=== PATIENT | male | born 1950 | race Caucasian/White ===

== ENCOUNTER 2017-01-30 06:01 | Inpatient (IN) | payer OTHER ==
[2017-01-30 06:17] VITALS: BMI 29.7
[2017-01-30] MEDS ORDERED: ceFAZolin IV 1 gm in Dextrose 2 GM/100 ML BAG IVPB ONE (07:20)
[2017-01-30] MEDS ORDERED: Lidocaine 1% Inj (20ml) ONE (07:20)
[2017-01-30] MEDS ORDERED: Thrombin Topical 5,000 IU Spray Kit ONE (07:20)
[2017-01-30] MEDS ORDERED: Bupivacaine 0.5% Inj(30mL) ONE (07:20)
[2017-01-30] MEDS ORDERED: Absorbable Gelatin Sponge Size 100 ONE (07:20)
[2017-01-30] MEDS ORDERED: Propofol 10 mg/ml Inj (20 ML) ONE (07:26)
[2017-01-30] MEDS ORDERED: Midazolam 2 MG/2 ML VIAL ONE (07:26)
[2017-01-30] MEDS ORDERED: Succinylcholine 200 mg/10 ml Inj IV ONE (07:27)
[2017-01-30] MEDS ORDERED: Lidocaine 4% (Laryng-O-Jet) Kit MM ONE (07:27)
[2017-01-30] MEDS ORDERED: Sodium Chloride 0.9% 10 ML IV ONE (07:27)
[2017-01-30] MEDS ORDERED: Neostigmine Methylsulfate 2 MG/2 ML ML IV ONE (07:27)
[2017-01-30] MEDS ORDERED: Lidocaine 1% 5ml Abboject IV ONE (07:28)
[2017-01-30] MEDS ORDERED: Rocuronium 10 mg/ml (5 ml) ONE ×2 (07:31→11:23)
[2017-01-30] MEDS ORDERED: Bupivacaine HCl 0.25% PF (30 ml) Inj ONE (08:03)
[2017-01-30] MEDS ORDERED: Bupivacaine HCl/Epi 0.5% 1:20000 30 ML SOL IJ ONE (08:06)
--- NOTE | 2017-01-30 08:06 | CP.PCM.HP ---
<Lupillo Crockett - Last Filed: 01/30/17 08:20> History of Present Illness - History of Present Illness History of Present Illness: Patient is a 66 year old male with PMH of DM and HTN seen in [facility] preoperatively for a right total knee replacement. Patient states that he is having some pain in his knee, particularly when walking or trying to bend it. He states that overall he feels well today. He states that he has been NPO since 10pm last night and only took a small sip of water this morning when taking his anti- hypertensive medication. Patient states that he has had multiple surgeries in the past but denies ever having any adverse reaction to the anesthesia during or following these surgeries. He states that overall he feels well this morning. He denies any allergies and denies any further complaints at this time. Review of Systems - Review of Systems Review of Systems: ROS unremarkable outside of HPI Past Patient History - Infectious Disease Hx of Infectious Diseases: None - Past Medical History & Family History Past Medical History?: Yes - Past Social History Smoking Status: Former Smoker - CARDIAC Hx Cardiac Disorders: Yes Hx Hypercholesterolemia: Yes Hx Hypertension: Yes - PULMONARY Hx Respiratory Disorders: No - NEUROLOGICAL Hx Neurological Disorder: No - HEENT Hx HEENT Problems: No - RENAL Hx Chronic Kidney Disease: No - ENDOCRINE/METABOLIC Hx Endocrine Disorders: Yes Hx Diabetes Mellitus Type 2: Yes - HEMATOLOGICAL/ONCOLOGICAL Hx Blood Disorders: No - INTEGUMENTARY Hx Dermatological Problems: No - MUSCULOSKELETAL/RHEUMATOLOGICAL Hx Musculoskeletal Disorders: Yes Hx Back Pain: Yes Hx Falls: Yes Hx Fractures: Yes (RIGHT TIBIAL PLATEAU ) - GASTROINTESTINAL Hx Gastrointestinal Disorders: No - GENITOURINARY/GYNECOLOGICAL Hx Genitourinary Disorders: No - PSYCHIATRIC Hx Psychophysiologic Disorder: No Hx Substance Use: No - SURGICAL HISTORY Hx Surgeries: Yes Hx Appendectomy: Yes Hx Herniorrhaphy: Yes (UMBILICAL) Hx Orthopedic Surgery: Yes Other/Comment: Back Surgery, Left Knee Sx - ANESTHESIA Hx Anesthesia: Yes Hx Anesthesia Reactions: No Hx Malignant Hyperthermia: No Has any member of the family had a problem w/ anesthesia?: No Meds Allergies/Adverse Reactions: Allergies Allergy/AdvReac Type Severity Reaction Status Date / Time No Known Allergies Allergy Verified 09/26/14 12:20 Physical Exam - Constitutional Appears: Well, Non-toxic, No Acute Distress - Head Exam Head Exam: ATRAUMATIC, NORMOCEPHALIC - Eye Exam Eye Exam: EOMI, PERRL Pupil Exam: PERRL - ENT Exam ENT Exam: Mucous Membranes Moist - Neck Exam Neck exam: Positive for: Normal Inspection. Negative for: Tenderness - Respiratory Exam Respiratory Exam: NORMAL BREATHING PATTERN - Cardiovascular Exam Cardiovascular Exam: REGULAR RHYTHM - GI/Abdominal Exam GI & Abdominal Exam: Soft. absent: Distended, Firm, Guarding - Rectal Exam Rectal Exam: Deferred - Extremities Exam Extremities exam: Positive for: normal capillary refill, normal inspection. Negative for: calf tenderness - Neurological Exam Neurological exam: Alert, Oriented x3 - Psychiatric Exam Psychiatric exam: Normal Affect, Normal Mood - Skin Skin Exam: Intact, Normal Color, Warm Results - Vital Signs Recent Vital Signs: Last Vital Signs Temp 97.9 F 01/30/17 07:15 Pulse 81 01/30/17 07:15 Resp 18 01/30/17 07:15 BP 148/87 01/30/17 07:15 Pulse Ox 96 01/30/17 07:15 - Labs Labs: Laboratory Results - last 24 hr 01/30/17 01/30/17 06:25 07:13 POC Glucose (mg/dL) 171 H BBK History Checked Patient has bt Assessment & Plan - Assessment and Plan (Free Text) Assessment: 66 year old male with PMHx HTN and DM2 seen in [facility] preoperatively before having right total knee replacement performed Plan: 1. Right total knee replacement Patient scheduled for surgery today at 9:45am Patient NPO since 10pm last night All at home medications taken as prescribed Xray R knee two views taken today Patient is medically optimized for surgery at this time 2. DM2 Blood glucose 171 Will continue meds post-op 3. HTN BP 148/87 Will continue meds post-op - Date & Time Date: 01/30/17 Time: 08:19 <Marco Antonio Story - Last Filed: 01/30/17 08:33> Present on Admission - Present on Admission Any Indicators Present on Admission: No Results - Vital Signs Recent Vital Signs: Last Vital Signs Temp 97.9 F 01/30/17 07:15 Pulse 81 01/30/17 07:15 Resp 18 01/30/17 07:15 BP 148/87 01/30/17 07:15 Pulse Ox 96 01/30/17 07:15 - Labs Labs: Laboratory Results - last 24 hr 01/30/17 01/30/17 06:25 07:13 POC Glucose (mg/dL) 171 H Blood Type AB POSITIVE Antibody Screen Negative BBK History Checked Patient has bt Assessment & Plan - Assessment and Plan (Free Text) Plan: ATTENDING ATTESTATION Patient was seen and examined by myself as well as the resident. I fully agree with the findings as documented by the resident. Patient is medically at acceptable risk for surgery. Decision To Admit - Pt Status Changed To: Hospital Disposition Of: [facility] Extended Stay Bed - . Bed Request Type: Med/Surg Admitting Physician: Marco Antonio Story
[2017-01-30] MEDS ORDERED: Lactated Ringer's 1,000 ML IV ONE (10:00)
[2017-01-30] MEDS ORDERED: Sodium Chloride 0.9% 1,000 ML IV ONE (10:10)
--- NOTE | 2017-01-30 11:39 | RAD ---
PROCEDURE: Right Knee Radiographs. HISTORY: pt in SDS, for TKR today COMPARISON: None. FINDINGS: BONES: No acute fracture or destructive bony lesion is identified. Bony defect femoral of fixation hardware is identified at the proximal tibia with residual metal fragments seen locally but within bone and lateral tibial knee soft tissue. JOINTS: Twenty narrowing is seen at the patellofemoral and medial femorotibial compartments with osteophytes in all 3 compartments compatible with relatively advanced degenerative joint disease. No subluxation or dislocation. Degenerative changes are most advanced at the patellofemoral joint. Heterotopic calcification of the insertion of the quadriceps tendon is noted as well as the origin of the patellar tendon. JOINT EFFUSION: None apparent. OTHER FINDINGS: None. IMPRESSION: Advanced degenerative joint disease right knee, status post prior fixation hardware removal from the proximal tibia. No acute fracture or dislocation.
[2017-01-30] MEDS ORDERED: Labetalol 5mg/ml (4ml) ONE (11:47)
[2017-01-30] MEDS ORDERED: Sevoflurane - Inhalation Anesthetic Liq (250 ml) ONE (13:14)
[2017-01-30] MEDS ORDERED: Oxycodone/Acetaminophen 5/325 mg Tab PO PRN (14:02)
[2017-01-30] MEDS ORDERED: HYDROmorphone 0.5 mg/0.5 ml ISec IVP PRN ×2 (14:02→14:45)
[2017-01-30] MEDS ORDERED: Sodium Chloride 0.9% 1,000 ML IV SCH (14:15)
--- NOTE | 2017-01-30 14:56 | PCM.ANESB3 ---
Femoral Nerve Block - Femoral Nerve Block Date of Procedure: 01/30/17 Anesthesiologist: Dr. Palmer Pre-Procedure Diagnosis: S/P Right total knee replacement Post-Procedure Diagnosis: S/P Right total knee replacement Procedure Performed: Femoral Nerve Block Right - Procedure Femoral Nerve Block: The procedure was explained to the patient that it is for the post-operative pain management. Consent was obtained after a thorough discussion with the patient regarding the benefits and possible complications of local anesthetic block of the femoral nerve at the inguinal crease area. The patient was brought to the operating room and standard monitors were applied. Time-out was held with the circulating nurse to confirm the correct surgery and the appropriate block. After the surgery while the patient is still under general anesthesia, in supine position with fully extended lower extremities and the right groin exposed. The femoral artery was then carefully palpated. The ultrasound transducer was then applied to this area in the transverse plane and the femoral nerve was visualized lateral to the femoral artery and underneath the fascia iliaca. After thorough identification, the inguinal crease area was prepped with Chloraprep solution. At this point, a #21 gauge Stimuplex 4-inch needle was inserted immediately lateral to the femoral artery pulse at the inguinal crease and advanced perpendicularly. The needle was inserted to the ultrasound transducer in-plane towards the femoral nerve in a [id number] direction. Needle advancement was performed carefully under direct ultrasound visualization. Nerve stimulator was used and twitch of the quadriceps muscle was obtained at current of 0.3MA. After negative aspiration, 5cc of 0.375% Bupivacaine with 1:200,000 epinephrine was injected and this was followed with 20cc of 0.375% Bupivacaine with 1:200, 000 epinephrine. Under ultrasound guidance the local anesthetics were observed spreading below fascia iliaca and around the femoral nerve. The needle was removed intact and sterile dressing was applied. The patient had stable vital signs, was conscious and in no apparent distress. The patient tolerated the femoral nerve block well with stable vital signs and was transported to PACU.
--- NOTE | 2017-01-30 15:03 | PCM.ANESB2 ---
Popliteal Nerve Block - Popliteal Nerve Block Date of Procedure: 01/30/17 Anesthesiologist: Dr. Palmer Pre-Procedure Diagnosis: S/P Right total knee replacement Post-Procedure Diagnosis: S/P right total knee replacement Procedure Performed: Popliteal Nerve Block Right - Procedure Popliteal Nerve Block: This procedure was explained to the patient that it is for post-operative pain management. Consent was obtained after a thorough discussion with the patient regarding the benefits and possible complications of local anesthetic block of the sciatic nerve at the popliteal level. The patient was brought to the operating room and standard monitors are applied. Time-out was held with the circulating nurse to confirm the correct surgery and the appropriate block. After the surgery while still under general anesthesia, patient's operative leg was gently raised and supported and the groove in between the biceps femoris and vastus lateralis muscles was carefully palpated. The skin approximately 5cm below the gluteal crease was then marked. The ultrasound transducer was then applied to the posterior thigh in the transverse plane and the sciatic nerve and in between the bicep femoris and semimembranosus/semitendinosus muscles. After identification, the lateral portion of the thigh was prepped with Chloraprep solution. At this point, a # 21 gauge Stimuplex insulated 4 inch needle was inserted into pre-marked area and advanced in a perpendicular direction. The needle was inserted above the ultrasound transducer in-plane towards the sciatic nerve in a [id number] direction. Needle advancement was performed carefully under direct ultrasound visualization. Nerve stimulator was used and dorsiflexion of the right foot was elicited at a current of 0.3MA. After repeated negative aspiration, 5cc of 0.375% Bupivacaine with 1:200,000 epinephrine was injected and this was flowed with 15cc of 0.375% Bupivacaine with 1:200,000 epinephrine. Under ultrasound guidance the local anesthetics were observed surrounding sciatic nerve . The needle was removed intact and sterile dressing was applied. The patient tolerated the popliteal nerve block well with stable vital signs and was transported to PACU.
--- NOTE | 2017-01-30 15:32 | RAD ---
PROCEDURE: Right Knee Radiographs. HISTORY: post op right tkr COMPARISON: 01/31/2020 [id number] FINDINGS: BONES: No osseous fracture. JOINTS: Status post right TKR. Grossly normal alignment achieved. JOINT EFFUSION: None. OTHER FINDINGS: Postoperative changes in anterior soft tissues. Surgical drain present. IMPRESSION: Status post right TKR.
[2017-01-30] MEDS: ceFAZolin IV 2 gm in Dextrose 2 GM/50 ML BAG IVPB SCH (17:00)
[2017-01-30] MEDS: Lactated Ringer's 1,000 ML IV SCH (19:34)
[2017-01-30] MEDS: Pravastatin Sodium 20 MG TAB PO SCH (21:37)
[2017-01-30] MEDS ORDERED: Patient's Own Med (Simvastatin [Simvastatin] 10 MG) PO SCH (22:00)
[2017-01-31] MEDS: ceFAZolin IV 2 gm in Dextrose 2 GM/50 ML BAG IVPB SCH (00:43)
[2017-01-31] MEDS: Lactated Ringer's 1,000 ML IV SCH ×3 (04:23→21:00)
--- NOTE | 2017-01-31 08:14 | PCM.SURG1 ---
Surgeon's Initial Post Op Note - Surgeon's Notes Surgeon: Ana Cristina Protection Agent: GARCÍA Orellana, 2nd assist/Linwood Lee Type of Anesthesia: General Endo, Spinal Anesthesia Administered By: DR Palmer Pre-Operative Diagnosis: Severe postrtraumatic O/A R Knee Operative Findings: as above. posterior capsular contracture. lateral patella contacture. severe tricompartmental synovitis Post-Operative Diagnosis: as above Operation Performed: R TKR. poosterior capsular release. lateral patella release'. anterior and posterior synovectomy. computer navigation Specimen/Specimens Removed: synovium/cartialge/bone Estimated Blood Loss: EBL {In ML}: 35 Blood Products Given: N/A Drains Used: No Drains Post-Op Condition: Good Date of Surgery/Procedure: 01/31/17 Time of Surgery/Procedure: 11:40 (time in room 10:45)
[2017-01-31 08:39] LABS: HEMATOCRIT 33.9 % (35.0-51.0); MEAN CELL VOLUME 90.2 fl (80.0-94.0); MEAN CORPUSCULAR HEMOGLOBIN 29.8 pg (27.0-31.0); RED CELL DISTRIBUTION WIDTH 13.6 % (11.5-14.5); WHITE BLOOD COUNT 9.4 K/uL (4.8-10.8)
[2017-01-31 08:56] LABS: POTASSIUM 4.1 MMOL/L (3.6-5.0)
[2017-01-31 08:59] LABS: BLOOD UREA NITROGEN 15 mg/dl (9-20); CARBON DIOXIDE 25 mmol/L (22-30); CHLORIDE 100 mmol/L (98-107); GFR AFRICAN-AMERICAN > 60; GLUCOSE,RANDOM 357 mg/dL (75-110); SODIUM 135 mmol/l (132-148)
[2017-01-31] MEDS ORDERED: ENALAPRIL 40 MG PO SCH (09:00)
--- NOTE | 2017-01-31 09:06 | CP.PCM.PN ---
Subjective - Date & Time of Evaluation Date of Evaluation: 01/31/17 Time of Evaluation: 09:02 - Subjective Subjective: 66 year old male seen bedside 1 day s/p right TKR. Patient states that he is not in any pain at this time and has been using his DITCH CLEANER pump as needed. Patient denies shortness of breath, chest pain, posterior calf pain, abdominal pain. He states that he has not had a BM since surgery but states that he has no symptoms of constipation and says that he had an enema prior to surgery. States that his appetite has been good. Patient denies any further complaints at this time. Objective - Vital Signs/Intake and Output Vital Signs (last 24 hours): Temp Pulse Resp BP Pulse Ox 100.4 F H 110 H 19 158/94 H 99 01/31/17 07:53 01/31/17 07:53 01/31/17 07:53 01/31/17 08:54 01/31/17 07:53 - Medications Medications: Current Medications Amlodipine Besylate (Norvasc) 10 mg PO DAILY [facility] Last Admin: 01/31/17 08:54 Dose: 10 mg Aspirin (Ecotrin) 81 mg PO Q12H [facility] Last Admin: 01/31/17 08:54 Dose: 81 mg Docusate Sodium (Colace) 100 mg PO BID [facility] Last Admin: 01/31/17 08:54 Dose: 100 mg Enalapril Maleate (Vasotec) 40 mg PO DAILY [facility] Last Admin: 01/31/17 08:55 Dose: 40 mg Gabapentin (Neurontin) 600 mg PO BID [facility] Last Admin: 01/31/17 08:54 Dose: 600 mg Glyburide (Micronase) 5 mg PO BID [facility] Last Admin: 01/31/17 08:55 Dose: 5 mg Hydromorphone HCl (Dilaudid) 0.5 mg IVP Q4 PRN PRN Reason: Pain, severe (8-10) Hydromorphone HCl (Dilaudid 0.2 Mg/Ml Media Manager) 6 mg IV PRN PRN; Protocol PRN Reason: Pain, moderate (4-7) Last Admin: 01/30/17 16:43 Dose: 0 mg Sodium Chloride (Sodium Chloride 0.9%) 1,000 mls @ 100 mls/hr IV .Q10H [facility] Stop: 01/31/17 14:05 Lactated Ringer's (Lactated Ringer's) 1,000 mls @ 100 mls/hr IV .Q10H [facility] Last Admin: 01/31/17 04:33 Dose: Not Given Metformin HCl (Glucophage) 500 mg PO BID [facility] Last Admin: 01/31/17 08:55 Dose: 500 mg Oxycodone/Acetaminophen (Percocet 5/325 Mg Tab) 2 tab PO Q4 PRN PRN Reason: Pain, moderate (4-7) Stop: 02/02/17 14:03 Pravastatin Sodium (Pravachol) 20 mg PO HS [facility] Last Admin: 01/30/17 21:37 Dose: 20 mg Sitagliptin Phosphate (Januvia) 100 mg PO DAILY [facility] - Labs Labs: 01/31/17 08:00 01/31/17 08:00 - Constitutional Appears: Well, Non-toxic, No Acute Distress - Head Exam Head Exam: ATRAUMATIC, NORMOCEPHALIC - Eye Exam Eye Exam: EOMI, PERRL Pupil Exam: PERRL - ENT Exam ENT Exam: Mucous Membranes Moist - Neck Exam Neck Exam: Normal Inspection. absent: Tenderness - Respiratory Exam Respiratory Exam: Clear to Ausculation Bilateral, NORMAL BREATHING PATTERN - Cardiovascular Exam Cardiovascular Exam: REGULAR RHYTHM - GI/Abdominal Exam GI & Abdominal Exam: Soft. absent: Firm, Guarding, Rigid - Rectal Exam Rectal Exam: Deferred - Extremities Exam Extremities Exam: Normal Capillary Refill, Normal Inspection. absent: Full ROM - Neurological Exam Neurological Exam: Alert, Awake, Oriented x3 - Psychiatric Exam Psychiatric exam: Normal Affect, Normal Mood - Skin Skin Exam: Dry, Intact, Warm Assessment and Plan - Assessment and Plan (Free Text) Assessment: 66 year old male seen at bedside 1 day s/p right TKR Plan: 66 year old male with PMHx of HTN, DM2 seen 1 day s/p right total knee replacment by Dr. De La Paz on 01/31/17 1. Right TKR POD #1 - TKR with Dr. De La Paz on 01/30/17 - No Leukocytosis - Continue Colace - DC DITCH CLEANER pump, continue Percocet - Continue incentive spirometery - Leave MILADIS drain in place, 80 cc fluid noted - CPM - PT/OT - To TCU tomorrow 02/01/17 2. DM2 - Hyperglycemia (random glucose 357) - Continue Glyburide - Continue Metformin - Continue Januvia - Continue Consistent carbohydrate diet - Continue Accucheck 3. HTN - BP 158/94 - Continue Norvasc - Continue Vasotec 4. Anemia - Hgb: 11.2, Hct: 33.9 5. Fever - Etiology most likely postoperative - Monitor - Continue Incentive Spirometer - Continue Tylenol - Repeat CBC, monitor WBC - Continue IV fluids 6. Hypocalemia - Calcium 8.0 7. DVT prophylaxis - Continue aspirin 81 mg - SCD 8. 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
--- NOTE | 2017-01-31 10:25 | CP.PCM.PN ---
Subjective - Date & Time of Evaluation Date of Evaluation: 01/31/17 Time of Evaluation: 07:30 - Subjective Subjective: Patient states that he has no pain in knee, still unable to move toes from block. Denies CP/SOB/dizziness. Objective - Vital Signs/Intake and Output Vital Signs (last 24 hours): Temp Pulse Resp BP Pulse Ox 100.4 F H 110 H 19 158/94 H 99 01/31/17 07:53 01/31/17 07:53 01/31/17 07:53 01/31/17 08:54 01/31/17 07:53 - Medications Medications: Current Medications Amlodipine Besylate (Norvasc) 10 mg PO DAILY [facility] Last Admin: 01/31/17 08:54 Dose: 10 mg Aspirin (Ecotrin) 81 mg PO Q12H [facility] Last Admin: 01/31/17 08:54 Dose: 81 mg Docusate Sodium (Colace) 100 mg PO BID [facility] Last Admin: 01/31/17 08:54 Dose: 100 mg Enalapril Maleate (Vasotec) 40 mg PO DAILY [facility] Last Admin: 01/31/17 08:55 Dose: 40 mg Gabapentin (Neurontin) 600 mg PO BID [facility] Last Admin: 01/31/17 08:54 Dose: 600 mg Glyburide (Micronase) 5 mg PO BID [facility] Last Admin: 01/31/17 08:55 Dose: 5 mg Hydromorphone HCl (Dilaudid) 0.5 mg IVP Q4 PRN PRN Reason: Pain, severe (8-10) Sodium Chloride (Sodium Chloride 0.9%) 1,000 mls @ 100 mls/hr IV .Q10H [facility] Stop: 01/31/17 14:05 Lactated Ringer's (Lactated Ringer's) 1,000 mls @ 100 mls/hr IV .Q10H [facility] Last Admin: 01/31/17 04:33 Dose: Not Given Metformin HCl (Glucophage) 500 mg PO BID [facility] Last Admin: 01/31/17 08:55 Dose: 500 mg Oxycodone/Acetaminophen (Percocet 5/325 Mg Tab) 2 tab PO Q4 PRN PRN Reason: Pain, moderate (4-7) Stop: 02/02/17 14:03 Pravastatin Sodium (Pravachol) 20 mg PO HS [facility] Last Admin: 01/30/17 21:37 Dose: 20 mg Sitagliptin Phosphate (Januvia) 100 mg PO DAILY [facility] Last Admin: 01/31/17 10:18 Dose: 100 mg - Labs Labs: 01/31/17 08:00 01/31/17 08:00 - Extremities Exam Additional comments: RLE: no ROM or sensation due to block. drain pulled. Calves soft NT neg homans + DP/PT pulses calves soft NT neg homans Assessment and Plan (1) Primary osteoarthritis of right knee Assessment & Plan: POD#1 s/p right TKR -VTE proph aspirin -PT/OT -d/c planning -labs reviewed -d/w Dr. torrez, agrees with above Status: Acute
[2017-01-31] MEDS ORDERED: Insulin Regular 100 units/ml SC ONE (12:34)
[2017-01-31] MEDS: Insulin Regular 100 units/ml SC SCH ×2 (16:45→21:50)
[2017-01-31] MEDS: Pravastatin Sodium 20 MG TAB PO SCH (21:21)
[2017-02-01] MEDS: Lactated Ringer's 1,000 ML IV SCH (06:15)
[2017-02-01 06:33] LABS: HEMATOCRIT 31.9 % (35.0-51.0); MEAN CORPUSCULAR HEMOGLOBIN 29.2 pg (27.0-31.0); MEAN CORPUSCULAR HGB CONC 32.5 g/dL (33.0-37.0); RED CELL DISTRIBUTION WIDTH 13.5 % (11.5-14.5); WHITE BLOOD COUNT 11.2 K/uL (4.8-10.8)
[2017-02-01 06:53] LABS: BLOOD UREA NITROGEN 12 mg/dl (9-20); CALCIUM 8.4 mg/dL (8.4-10.2); CARBON DIOXIDE 27 mmol/L (22-30); CHLORIDE 101 mmol/L (98-107); GFR AFRICAN-AMERICAN > 60; GLUCOSE,RANDOM 197 mg/dL (75-110); SODIUM 137 mmol/l (132-148)
[2017-02-01] MEDS: Insulin Regular 100 units/ml SC SCH ×2 (08:41→12:02)
[2017-02-01] MEDS ORDERED: GLYBURIDE PO SCH (09:00)
[2017-02-01] MEDS ORDERED: JANUVIA 100 MG PO SCH (09:00)
[2017-02-01] MEDS ORDERED: METFORMIN HCL PO SCH (09:00)
--- NOTE | 2017-02-01 09:14 | CP.PCM.DIS ---
Provider - Provider Date of Admission: 01/30/17 14:02 Attending physician: Herberth Story DO Primary care physician: Ulises De La Paz III, MD Consults: Dr. Ana Cristina MD Time Spent in preparation of Discharge (in minutes): 25 Hospital Course - Lab Results Lab Results: Most Recent Lab Values WBC 11.2 K/uL (4.8-10.8) H 02/01/17 06:26 RBC 3.55 Mil/uL (4.40-5.90) L 02/01/17 06:26 Hgb 10.4 g/dL (12.0-18.0) L 02/01/17 06:26 Hct 31.9 % (35.0-51.0) L 02/01/17 06:26 MCV 90.0 fl (80.0-94.0) 02/01/17 06:26 MCH 29.2 pg (27.0-31.0) 02/01/17 06:26 MCHC 32.5 g/dL (33.0-37.0) L 02/01/17 06:26 RDW 13.5 % (11.5-14.5) 02/01/17 06:26 Plt Count 132 K/uL (130-400) 02/01/17 06:26 Sodium 137 mmol/l (132-148) 02/01/17 06:26 Potassium 4.0 MMOL/L (3.6-5.0) 02/01/17 06:26 Chloride 101 mmol/L (98-107) 02/01/17 06:26 Carbon Dioxide 27 mmol/L (22-30) 02/01/17 06:26 Anion Gap 13 (10-20) 02/01/17 06:26 BUN 12 mg/dl (9-20) 02/01/17 06:26 Creatinine 1.0 mg/dl (0.8-1.5) 02/01/17 06:26 Est GFR ( Amer) > 60 02/01/17 06:26 Est GFR (Non-Af Amer) > 60 02/01/17 06:26 POC Glucose (mg/dL) 199 mg/dL (65-110) H 02/01/17 06:06 Random Glucose 197 mg/dL (75-110) H 02/01/17 06:26 Calcium 8.4 mg/dL (8.4-10.2) 02/01/17 06:26 25-OH Vitamin D Total 46.9 NG/ML (30.0-100.0) 01/31/17 08:00 Blood Type AB POSITIVE 01/30/17 06:25 Antibody Screen Negative 01/30/17 06:25 BBK History Checked Patient has bt 01/30/17 06:25 - Hospital Course Hospital Course: Patient is a 66 year old male with PMH of DM and HTN who presented to [facility] for a right total knee replacement with Dr. De La Paz. The patient underwent the procedure without complications. He is currently POD#2. He states that he feels well this morning. He relates that his pain is under control with medications. Patient denies chest pain, shortness of breath, fevers, chills, nausea, vomiting , diarrhea, headache. Rest of ROS as below. All of the patient's and/or family' s questions were answered at the bedside. The patient is being discharged to TCU today for further PT/OT and postoperative care. 66 year old male with PMHx of HTN, DM2 seen 1 day s/p right total knee replacment by Dr. De La Paz on 01/31/17 1. Right TKR POD #2 - Discharge to transitional care unit now for PT/OT - Dr. De La Paz on consultation - No Leukocytosis - Continue Colace - OPERATOR LIGHTS pump discontinued, continue Percocet - Continue incentive spirometery - CPM - PT/OT 2. DM2 - Hyperglycemia - Continue Glyburide - Continue Metformin - Continue Januvia - Continue Consistent carbohydrate diet - Continue Accucheck 3. HTN - BP 158/94->159/81 today - Continue Norvasc - Continue Vasotec 4. Anemia - Hgb: 11.2, Hct: 33.9 5. Fever- resolved - Etiology most likely postoperative - Monitor - Continue Incentive Spirometer - Continue Tylenol - Repeat CBC, monitor WBC - Continue IV fluids 6. Hypocalemia resolved - Calcium 8.0->8.4 7. DVT prophylaxis - Continue aspirin 81 mg po q 12 hours - SCD 8. 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 Head- NCAT, PERRL Eye- PERRL, normal accommodation ENT- normal exam, MMM. Neck- normal inspection, supple, no JVD Respiratory- CTAB, no wheezes rales rhonchi Cardiovascular- RRR, +S1, +S2 no MRG GI/Abdominal- normal bowel sounds, soft, no mass, no hsm Skin- warm, dry Extremities Exam- Right knee in immobilizer; normal capillary refill, normal inspection Neurological Exam- alert, stable gait Psych- normal mood, normal affect Discharge Plan - Follow Up Plan Condition: GOOD Disposition: TRANSF TO SNF Referrals: Ulises De La Paz III, MD [Primary Care Provider] -
--- NOTE | 2017-02-01 11:27 | CP.PCM.PN ---
Subjective - Date & Time of Evaluation Date of Evaluation: 02/01/17 Time of Evaluation: 11:20 - Subjective Subjective: S- pt comfortablle/MINIMAL post op discomfort Objective - Vital Signs/Intake and Output Vital Signs (last 24 hours): Temp Pulse Resp BP Pulse Ox 99.8 F H 114 H 19 159/81 H 99 02/01/17 08:13 02/01/17 08:13 02/01/17 08:13 02/01/17 08:38 02/01/17 08:13 - Medications Medications: Current Medications Acetaminophen (Tylenol 325mg Tab) 650 mg PO Q6 PRN PRN Reason: Fever >100.4 F Last Admin: 01/31/17 23:56 Dose: 650 mg Amlodipine Besylate (Norvasc) 10 mg PO DAILY COUNTS INCLUDE 234 BEDS AT THE [facility] Last Admin: 02/01/17 08:38 Dose: 10 mg Aspirin (Ecotrin) 81 mg PO Q12H COUNTS INCLUDE 234 BEDS AT THE [facility] Last Admin: 02/01/17 08:38 Dose: 81 mg Docusate Sodium (Colace) 100 mg PO BID COUNTS INCLUDE 234 BEDS AT THE [facility] Last Admin: 02/01/17 08:38 Dose: 100 mg Enalapril Maleate (Vasotec) 40 mg PO DAILY COUNTS INCLUDE 234 BEDS AT THE [facility] Last Admin: 02/01/17 08:41 Dose: 40 mg Gabapentin (Neurontin) 600 mg PO BID COUNTS INCLUDE 234 BEDS AT THE [facility] Last Admin: 02/01/17 08:39 Dose: 600 mg Glyburide (Micronase) 5 mg PO BID COUNTS INCLUDE 234 BEDS AT THE [facility] Last Admin: 02/01/17 08:41 Dose: 5 mg Hydromorphone HCl (Dilaudid) 0.5 mg IVP Q4 PRN PRN Reason: Pain, severe (8-10) Lactated Ringer's (Lactated Ringer's) 1,000 mls @ 100 mls/hr IV .Q10H COUNTS INCLUDE 234 BEDS AT THE [facility] Last Admin: 02/01/17 06:15 Dose: Not Given Insulin Human Regular (Humulin R) 0 units SC ACHS COUNTS INCLUDE 234 BEDS AT THE [facility] PRN Reason: Protocol Last Admin: 02/01/17 08:41 Dose: 1 units Metformin HCl (Glucophage) 500 mg PO BID COUNTS INCLUDE 234 BEDS AT THE [facility] Last Admin: 02/01/17 08:39 Dose: 500 mg Oxycodone/Acetaminophen (Percocet 5/325 Mg Tab) 2 tab PO Q4 PRN PRN Reason: Pain, moderate (4-7) Stop: 02/02/17 14:03 Pravastatin Sodium (Pravachol) 20 mg PO HS COUNTS INCLUDE 234 BEDS AT THE [facility] Last Admin: 01/31/17 21:21 Dose: 20 mg Sitagliptin Phosphate (Januvia) 100 mg PO DAILY COUNTS INCLUDE 234 BEDS AT THE [facility] Last Admin: 02/01/17 08:40 Dose: 100 mg - Labs Labs: 02/01/17 06:26 02/01/17 06:26 - Skin Additional comments: Objective systemic- wnl no evidence for thromboembolic disease Musculoskekltal stance/gait- defrred R knee dressing dry and intacty N/V ibtact no gross/progressive deficit Assessment and Plan - Assessment and Plan (Free Text) Assessment: A- s.p R TKR excellent position P- orthopedially stable for TCU transfer
[2017-02-01 12:15] VITALS: BP 158/96; RESP 20; TEMP 102.3; O2SAT 96
[2017-02-01 12:54] VITALS: PULSE 120
--- NOTE | 2017-02-03 19:13 | OP ---
PROCEDURE DATE: 01/30/2017 LOCATION: [facility]. PREOPERATIVE DIAGNOSIS: Severe tricompartmental osteoarthritis of the right knee. POSTOPERATIVE DIAGNOSES: 1. 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 2. Posterior capsular contracture. 3. Lateral patellar contracture. 4. Severe tricompartmental synovitis. OPERATIVE FINDINGS: As above. OPERATION PERFORMED: 1. Right total knee replacement arthroplasty. 2. Posterior capsular release. 3. Lateral patellar retinacular release. 4. Anterior and posterior synovectomy. 5. Computer navigation. SURGEON: Ulises De La Paz MD DIABETES EDUCATOR: Analy Porter, certified registered nursing. SECOND COMMISSARY PRODUCTION SUPERVISOR: Dr. Linwood Lee. SPECIMENS REMOVED: Synovium, cartilage, and bone. BLOOD LOSS: Approximately 35 mL. BLOOD PRODUCTS: None. DRAINS: One Hemovac drain. POSTOPERATIVE CONDITION: Good. DATE AND LOCATION OF SURGERY: 01/30/2017, right knee is the correct knee. TIME IN THE ROOM: 10:45 a.m. INCISION TIME: 11:40 a.m. OPERATIVE INDICATION: After having obtained informed consent in the above fashion, after having identified side, site, and procedure and critical pause/time-out, after the satisfactory induction of the anesthetic, the patient identified as Jorge Christina in the supine position with all bony prominences well padded, the right lower extremity was prepped and free draped in the usual fashion for lower extremity surgery. The patient presents, well known to my practice, presents with severe pain, restricted range of motion with restriction of femoral flexion and extension. The patient is status post successful open reduction and internal fixation of the tibial plateau fracture. Pros, cons, risks, and benefits of surgery and approach were discussed. The possibility of mechanical failure, infection, thromboembolic disease, secondary or tertiary surgery were discussed. The patient and the family wished the surgery to be accomplished. He can no longer stand the discomfort. OPERATIVE PROCEDURE: After having obtained informed consent in the above fashion, after having identified the side, site, and procedure and a critical pause/time-out, after the satisfactory induction of the anesthetic, the patient identified as Jorge Christina in the supine position with all bony prominences well padded, the right lower extremity was prepped and free draped in the usual fashion for lower extremity surgery. The tourniquet had been applied, but was not yet inflated. After exsanguinating the limb using a 6-inch Esmarch bandage, the tourniquet which had been applied was inflated to 350 mmHg on the right knee. A 6-inch straight midline approach was made to the knee. The skin incision was carried down through the skin and subcutaneous tissue, medial arthrotomy was accomplished. There was found to be extensive contracture. The pes anserinus was released and the dissection was carried around posteromedially to the direct head of the semimembranosus tendon that was released as well. The tibia was dislocated anteriorly. Anterior and posterior cruciate ligaments were excised. Medial and lateral meniscectomies were accomplished. There was found to be an exuberant amount of synovial tissue and an anterior and posterior synovectomy was accomplished using the electrocautery and the Aquamantys. This having been accomplished, computer navigation commences with the anterior strut of the KneeAlign system placed on the anterior aspect of the tibia and affixed with guide pins. The accelerometer and sensor were placed and offset was set to the posterior aspect of the anterior cruciate ligament. This having been accomplished, the knee center is identified and offset having been identified. The lateral malleolus was registered, the medial malleolus was registered and the cut was set to 3.5 degrees posterior slope, 0 degrees varus-valgus. The cut was set to 10 mm below the more prominent side. The tibial osteotomy was accomplished. The tibia was sized to the appropriate #4 tibial component. Guides to rotation are the mid malleolar axis, the lateral aspect, the medial aspect of the tibial tuberosity, and the lateral aspect of the tibial condyle. This having been accomplished, the proximal tibia was prepared and attention was turned to the femur after preparing and punching the proximal tibia. It should be noted that computer navigation was employed. After registration of the offset of the femur, the notch osteophytes and border osteophytes were debrided. The intercondylar guide notch pin was placed, the distal cutting guide was placed. The distal cutting guide was fixed with pins. The accelerometer was placed as well as the sensor. Varus-valgus set to 0 degrees, a 0.5 degrees posterior slope with 0.5 degrees of flexion. This having been accomplished, the hip center was identified and registered. The offset was registered as well and the distal cutting guide was placed to 9 mm. The distal cut was accomplished with precision offered by an [facility] retractor keeping the blade relatively fixed to the bony cut surface. It should be noted at this point in time, the anterior and posterior synovectomies were accomplished to identify the anterior aspect of the femur and to eliminate inflammatory tissue. The #4 femoral component was employed as well, 4-in-1 block was placed across the epicondylar axis. The 4-in-1 block placed, anterior and posterior osteotomies were accomplished as well as chamfer cuts. The lamina human geography instructor was placed and the posterior capsule was elevated. A lateral patellar retinacular release was accomplished as well since there were marked contractures of the lateral retinaculum and the posterior capsule. At this point in time, a femoral trial was placed. Lugs were affixed in the appropriate attitude, reaming was accomplished. At this point in time, the patellofemoral joint was identified. The sled was placed and the patellofemoral joint was reamed. Attention was now turned to the patella. Patella girth was found to be approximately 31 mm. Freehand patella osteotomy was accomplished. The patella was templated and reamed to a #2 Medacta patellar component. It should be noted that the lateral patellar retinaculum was contracted and was released. The Aquamantys was used to control the bleeding from the synovium and the lateral retinaculum and the posterior capsule. Great care was taken to spare the superior lateral genicular vessels. The patella was placed. Flexion/extension balance was found to be excellent. Patellar balance was found to be excellent. Trialing having been accomplished, the femur, tibia, and patella were prepared with the Pulsavac and the appropriate size components were cemented. The wound was thoroughly irrigated. Tourniquet was deflated. Hemostasis was controlled. Blood loss was approximately 35 mL. Closures in layers with #1 Vicryl, 0 Vicryl, 2-0 Vicryl, and sudhir for skin over an 8-inch suction Hemovac drain. Flo Rodriguez compression dressing was applied. It should be noted that the nursing glass ribbon machine operator assistant was essential to the completion of the operative goal, and the patient was transferred from the operating table to the stretcher having tolerated the procedure well. Ulises De La Paz MD
== END 2017-02-01 14:22 | DRG 470 ==
LOC: H.OPSURG 06:01 → H.MEDSURG1 14:02
PROVIDERS: ADMIT Internal Medicine; ATTEND Internal Medicine
PROC: 0SRC0J9 Replacement of Right Knee Joint with Synthetic Substitute, Cemented, Open Approach (ICD-10-PCS; principal; 2017-01-30 09:45)
PROC: 3E0T3BZ Introduction of Anesthetic Agent into Peripheral Nerves and Plexi, Percutaneous Approach (ICD-10-PCS; 2017-01-30 09:45)
PROC: 0SBC0ZZ Excision of Right Knee Joint, Open Approach (ICD-10-PCS; 2017-01-30 09:45)
DX: M17.11 Unilateral primary osteoarthritis, right knee (principal); E11.41 Type 2 diabetes mellitus with diabetic mononeuropathy; D64.9 Anemia, unspecified; M54.9 Dorsalgia, unspecified; Z79.82 Long term (current) use of aspirin; Z87.891 Personal history of nicotine dependence; Z90.49 Acquired absence of other specified parts of digestive tract; R50.82 Postprocedural fever; E11.65 Type 2 diabetes mellitus with hyperglycemia; E78.00 Pure hypercholesterolemia, unspecified; I10 Essential (primary) hypertension; R00.0 Tachycardia, unspecified; M17.31 Unilateral post-traumatic osteoarthritis, right knee; M65.9 Synovitis and tenosynovitis, unspecified

== ENCOUNTER 2017-01-31 14:40 | Inpatient (IN) | payer OTHER ==
[2017-02-01 13:55] VITALS: BMI 30.1
[2017-02-01 14:32] VITALS: RESP 20
[2017-02-01] MEDS: Insulin Regular 100 units/ml SC SCH (17:27)
[2017-02-01] MEDS: Oxycodone/Acetaminophen 5/325 mg Tab PO PRN (21:26)
[2017-02-01] MEDS: Pravastatin Sodium 20 MG TAB PO SCH (21:30)
[2017-02-02] MEDS: Insulin Regular 100 units/ml SC SCH ×4 (00:01→16:16)
[2017-02-02 08:21] LABS: MEAN CELL VOLUME 89.4 fl (80.0-94.0); MEAN CORPUSCULAR HEMOGLOBIN 30.5 pg (27.0-31.0); MEAN CORPUSCULAR HGB CONC 34.1 g/dL (33.0-37.0); RED CELL DISTRIBUTION WIDTH 13.3 % (11.5-14.5); WHITE BLOOD COUNT 9.2 K/uL (4.8-10.8)
[2017-02-02 08:34] LABS: BLOOD UREA NITROGEN 14 mg/dl (9-20); CALCIUM 8.8 mg/dL (8.4-10.2); CARBON DIOXIDE 26 mmol/L (22-30); CHLORIDE 100 mmol/L (98-107); GFR AFRICAN-AMERICAN > 60; GLUCOSE,RANDOM 197 mg/dL (75-110); POTASSIUM 3.9 MMOL/L (3.6-5.0); SODIUM 136 mmol/l (132-148)
[2017-02-02] MEDS: Multivitamin With Minerals Tab PO SCH (09:09)
--- NOTE | 2017-02-02 11:02 | CP.PCM.HP ---
History of Present Illness - History of Present Illness History of Present Illness: CC: Postop Patient is a 66 year old male with PMH of DM and HTN who underwent a right total knee replacement with Dr. De La Paz. The patient underwent the procedure without complications. He is currently POD#3 and was transferred to the transitional care unit for continued PT/OT. He states that he feels alright today. He relates that his pain is under control. He is resting comfortably in bed. He has been having occasional fever and intermittent tachycardia. Today he does have a low grade fever again, 100.4. Patient denies chest pain, shortness of breath, chills, nausea, vomiting, diarrhea, headache. Rest of ROS as below. All of the patient's questions were answered at the bedside. Present on Admission - Present on Admission Any Indicators Present on Admission: No Review of Systems - Hematologic/Lymphatic Additional comments: GENERAL/CONSTITUTIONAL: The patient admits to occ fever, denies fatigue, weakness, weight gain or weight loss. HEAD, EYES, EARS, NOSE AND THROAT: Eyes - The patient denies pain, redness, loss of vision, double or blurred vision, flashing lights or spots, dryness, Ears, nose, mouth and throat. The patient denies ringing in the ears, loss of hearing, nosebleeds, loss of sense of smell, dry sinuses, sinusitis, post nasal drip, CARDIOVASCULAR: The patient denies chest pain, chest pressure, or irregular heartbeats, RESPIRATORY: The patient denies chronic dry cough, coughing up blood, coughing up mucus, wheezing, or shortness of breath. GASTROINTESTINAL: The patient denies decreased appetite, nausea, vomiting, vomiting blood or coffee ground material, heartburn, regurgitation, diarrhea, constipation, gas, blood in the stools, black tarry stools. GENITOURINARY: The patient denies difficult urination, pain or burning with urination, blood in the urine, frequency, or urgency MUSCULOSKELETAL: The patient admits to minimal right knee discomfort but it is controlled with medication. He denies arm, buttock, thigh or calf cramps. No muscle pain. No muscle weakness or tenderness. No neck pain, back pain. SKIN: The patient denies easy bruising, skin redness, skin rash, hives, sensitivity to sun exposure, tightness, nodules or bumps, hair loss, color changes in the hands or feet with cold. NEUROLOGIC: The patient denies headache, dizziness, fainting, muscle spasm, loss of consciousness, sensitivity or pain in the hands and feet or memory loss. PSYCHIATRIC: The patient denies anxiety, depression, or thoughts of suicide. ENDOCRINE: The patient denies intolerance to hot or cold temperature, flushing, fingernail changes, increased thirst, or increased salt intake HEMATOLOGIC/LYMPHATIC: The patient denies anemia, bleeding tendency or clotting tendency. ALLERGIC/IMMUNOLOGIC: The patient denies rhinitis, asthma, skin sensitivity, latex allergies or sensitivity. Past Patient History - Infectious Disease Hx of Infectious Diseases: None - Past Medical History & Family History Past Medical History?: Yes - Past Social History Smoking Status: Former Smoker - CARDIAC Hx Cardiac Disorders: Yes Hx Hypercholesterolemia: Yes Hx Hypertension: Yes - PULMONARY Hx Respiratory Disorders: No - NEUROLOGICAL Hx Neurological Disorder: No - HEENT Hx HEENT Problems: No - RENAL Hx Chronic Kidney Disease: No - ENDOCRINE/METABOLIC Hx Endocrine Disorders: Yes Hx Diabetes Mellitus Type 2: Yes - HEMATOLOGICAL/ONCOLOGICAL Hx Blood Disorders: No - INTEGUMENTARY Hx Dermatological Problems: No - MUSCULOSKELETAL/RHEUMATOLOGICAL Hx Musculoskeletal Disorders: Yes Hx Back Pain: Yes Hx Falls: Yes Hx Fractures: Yes (RIGHT TIBIAL PLATEAU ) - GASTROINTESTINAL Hx Gastrointestinal Disorders: No - GENITOURINARY/GYNECOLOGICAL Hx Genitourinary Disorders: No - PSYCHIATRIC Hx Psychophysiologic Disorder: No Hx Substance Use: No - SURGICAL HISTORY Hx Surgeries: Yes Hx Appendectomy: Yes Hx Herniorrhaphy: Yes (UMBILICAL) Hx Orthopedic Surgery: Yes Other/Comment: Back Surgery, Left Knee Sx - ANESTHESIA Hx Anesthesia: Yes Hx Anesthesia Reactions: No Hx Malignant Hyperthermia: No Meds Allergies/Adverse Reactions: Allergies Allergy/AdvReac Type Severity Reaction Status Date / Time cucumbers Allergy ITCHING Uncoded 02/01/17 13:55 Physical Exam - Additional Findings Additional findings: Physical exam: Constitutional- cooperative, awake, alert. Head- NCAT, PERRL Eye- PERRL, normal accommodation ENT- normal exam, MMM. Neck- normal inspection, supple, no JVD Respiratory- CTAB, no wheezes rales rhonchi Cardiovascular- RRR, +S1, +S2 no MRG GI/Abdominal- normal bowel sounds, soft, no mass, no hsm Skin- warm, dry Extremities Exam- Right knee in immobilizer; normal capillary refill, normal inspection Neurological Exam- alert, stable gait Psych- normal mood, normal affect Results - Vital Signs Recent Vital Signs: Last Vital Signs Temp 100.4 F H 02/02/17 09:12 Pulse 100 H 02/02/17 09:08 Resp 20 02/02/17 08:20 BP 146/82 02/02/17 09:08 Pulse Ox 98 02/02/17 08:20 - Labs Result Diagrams: 02/02/17 08:03 02/02/17 08:03 Labs: Laboratory Results - last 24 hr 02/01/17 02/01/17 02/02/17 16:16 20:41 06:35 WBC RBC Hgb Hct MCV MCH MCHC RDW Plt Count Sodium Potassium Chloride Carbon Dioxide Anion Gap BUN Creatinine Est GFR ( Amer) Est GFR (Non-Af Amer) POC Glucose (mg/dL) 159 H 208 H 207 H Random Glucose Calcium 02/02/17 02/02/17 08:03 08:03 WBC 9.2 RBC 3.36 L Hgb 10.2 L Hct 30.0 L MCV 89.4 MCH 30.5 MCHC 34.1 RDW 13.3 Plt Count 138 Sodium 136 Potassium 3.9 Chloride 100 Carbon Dioxide 26 Anion Gap 14 BUN 14 Creatinine 1.0 Est GFR ( Amer) > 60 Est GFR (Non-Af Amer) > 60 POC Glucose (mg/dL) Random Glucose 197 H Calcium 8.8 Assessment & Plan - Assessment and Plan (Free Text) Plan: Patient is a 66 year old male with PMH of DM and HTN who presented to [facility] for a right total knee replacement with Dr. De La Paz. The patient underwent the procedure without complications. He is currently POD#2. He states that he feels well this morning. He relates that his pain is under control with medications. Patient denies chest pain, shortness of breath, fevers, chills, nausea, vomiting , diarrhea, headache. Rest of ROS as below. All of the patient's and/or family' s questions were answered at the bedside. The patient is admitted to TCU for further PT/OT and postoperative care. 66 year old male with PMHx of HTN, DM2 seen 1 day s/p right total knee replacment by Dr. De La Paz on 01/31/17 1. Right TKR POD #3 - Continued PT/OT - Dr. De La Paz on consultation - No Leukocytosis - Continue Colace - BLOCK[employer] LENS pump discontinued, continue Percocet - Continue incentive spirometery - CPM 2. DM2 - Hyperglycemia- improving - Restart Glyburide - Continue Metformin - Continue Januvia - Continue Consistent carbohydrate diet - Continue Accucheck 3. HTN- improving although still not controlled - BP 158/94->159/81--> 146/82 - Continue Norvasc - Continue Vasotec - Added HCTZ 12.5 mg po daily, will titrate as necessary 4. Anemia- stabilizing - Hgb: 11.2-->10.4-->10.2 - From operative blood loss 5. Postoperative fever- likely normal physiologic response to surgery vs atelectasis - If still spiking fevers tomorrow will obtain BCX, UA/UCX, CXR - Monitor - Encourage Incentive Spirometer - Continue Tylenol - monitor WBC 6. DVT prophylaxis - Continue aspirin 81 mg po q 12 hours - SCD 7. 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
[2017-02-02 17:55] LABS: RBC URINE < 1 /hpf (0-3); URINE BILIRUBIN NEGATIVE (NEGATIVE); URINE BLOOD SMALL (NEGATIVE); URINE COLOR YELLOW (YELLOW); URINE GLUCOSE (UA) >=500 mg/dL (Normal); URINE KETONE NEGATIVE (NEGATIVE); URINE LEUKOCYTE ESTERASE NEG Leu/uL (Negative); URINE PROTEIN 30 mg/dL (NEGATIVE); WBC URINE 1 /hpf (0-5)
[2017-02-02] MEDS: Pravastatin Sodium 20 MG TAB PO SCH (23:14)
[2017-02-03] MEDS: Insulin Regular 100 units/ml SC SCH ×5 (02:46→21:46)
--- NOTE | 2017-02-03 08:18 | RAD ---
HISTORY: COMPARISON: No prior. TECHNIQUE: Chest PA and lateral FINDINGS: LUNGS: No active pulmonary disease. PLEURA: No significant pleural effusion identified. No pneumothorax apparent. CARDIOVASCULAR: Normal. OSSEOUS STRUCTURES: No significant abnormalities. VISUALIZED UPPER ABDOMEN: Normal. OTHER FINDINGS: None. IMPRESSION: No active disease.
[2017-02-03] MEDS: Multivitamin With Minerals Tab PO SCH (08:46)
[2017-02-03] MEDS: Oxycodone/Acetaminophen 5/325 mg Tab PO PRN (08:51)
--- NOTE | 2017-02-03 09:32 | CP.PCM.PN ---
Subjective - Date & Time of Evaluation Date of Evaluation: 02/03/17 Time of Evaluation: 09:30 - Subjective Subjective: Patient c/o dizziness when he sits up. He denies CP/SOB/palpitations/cough. Denies numbness/tingling. Objective - Vital Signs/Intake and Output Vital Signs (last 24 hours): Temp Pulse Resp BP Pulse Ox 98.9 F 102 H 20 155/90 H 98 02/03/17 08:15 02/03/17 08:46 02/03/17 08:15 02/03/17 08:46 02/03/17 08:15 - Medications Medications: Current Medications Acetaminophen (Tylenol 325mg Tab) 650 mg PO Q6 PRN PRN Reason: Fever >100.4 F Last Admin: 02/02/17 23:21 Dose: 650 mg Amlodipine Besylate (Norvasc) 10 mg PO DAILY [facility] Last Admin: 02/03/17 08:46 Dose: 10 mg Aspirin (Ecotrin) 81 mg PO Q12@0900,2100 [facility] Last Admin: 02/03/17 08:46 Dose: 81 mg Docusate Sodium (Colace) 100 mg PO BID [facility] Last Admin: 02/03/17 08:47 Dose: 100 mg Enalapril Maleate (Vasotec) 40 mg PO DAILY [facility] Last Admin: 02/03/17 08:47 Dose: 40 mg Gabapentin (Neurontin) 600 mg PO BID [facility] Last Admin: 02/03/17 08:47 Dose: 600 mg Glyburide (Micronase) 5 mg PO BRK [facility] Last Admin: 02/03/17 08:46 Dose: 5 mg Hydrochlorothiazide (Microzide) 12.5 mg PO DAILY [facility] Last Admin: 02/03/17 08:47 Dose: 12.5 mg Insulin Human Regular (Humulin R) 0 units SC ACHS [facility] PRN Reason: Protocol Last Admin: 02/03/17 06:47 Dose: 3 units Lactulose (Enulose) 20 gm PO DAILY PRN PRN Reason: Constipation Metformin HCl (Glucophage) 500 mg PO BID [facility] Last Admin: 02/03/17 08:46 Dose: 500 mg Multivitamins/Minerals (Therapeutic-M Tab) 1 tab PO DAILY [facility] Last Admin: 02/03/17 08:46 Dose: 1 tab Oxycodone/Acetaminophen (Percocet 5/325 Mg Tab) 2 tab PO Q4 PRN PRN Reason: Pain, moderate (4-7) Stop: 02/04/17 15:32 Last Admin: 02/03/17 08:51 Dose: 2 tab Pravastatin Sodium (Pravachol) 20 mg PO HS [facility] Last Admin: 02/02/17 23:14 Dose: 20 mg Sitagliptin Phosphate (Januvia) 100 mg PO DAILY [facility] Last Admin: 02/03/17 08:46 Dose: 100 mg - Labs Labs: 02/02/17 08:03 02/02/17 08:03 - Extremities Exam Additional comments: RLE: dressing changed. Incision intact, mild ecchymosis and swelling to knee as expected. Incision and hemovac site dry. +DP/PT pulses, calves soft NT neg homans, Leg elevated, some mild dependent swelling, +ROM ankle/toes, sensation intact. Assessment and Plan (1) Primary osteoarthritis of right knee Assessment & Plan: POD#4 s/p Right Tkr -vitals noted, temp 102 on 02/01, septic workup in progress, Tmax last 24 hrs 100 , afeb today -check CBC -PT/OT -VTE proph -patient still tachycardic, but good saturation on room air, will get dopplers r /o DVT d/w Dr. De La Paz, agrees with above Status: Acute
[2017-02-03 10:22] LABS: BASO % 0.3 % (0.0-2.0); EOS # 0.2 K/uL (0.0-0.7); EOS % 2.3 % (0.0-4.0); HEMATOCRIT 29.6 % (35.0-51.0); LYMPH # 1.4 K/uL (1.0-4.3); LYMPH % 15.3 % (20.0-40.0); MEAN CELL VOLUME 88.7 fl (80.0-94.0); MEAN CORPUSCULAR HEMOGLOBIN 30.2 pg (27.0-31.0); MEAN CORPUSCULAR HGB CONC 34.1 g/dL (33.0-37.0); MEAN PLATELET VOLUME 10.4 fl (7.2-11.7); MONO # 1.5 K/uL (0.0-0.8); MONO % 16.1 % (0.0-10.0); NEUT # 6.1 K/uL (1.8-7.0); WHITE BLOOD COUNT 9.2 K/uL (4.8-10.8)
[2017-02-03] MEDS: Pravastatin Sodium 20 MG TAB PO SCH (21:20)
[2017-02-04] MEDS: Insulin Regular 100 units/ml SC SCH ×4 (06:53→21:57)
[2017-02-04] MEDS: Multivitamin With Minerals Tab PO SCH (09:05)
--- NOTE | 2017-02-04 11:43 | CP.PCM.PN ---
Subjective - Date & Time of Evaluation Date of Evaluation: 02/04/17 Time of Evaluation: 11:30 - Subjective Subjective: Patent seen and examined bedside. Feeling well. Tmax 99.7 last 12 hours. Feeling a little dizzy upon standing and HR as high as 130 with ambulation. Denies any SOB, CP, cough, chills, urinary sx , calf tenderness. No acute issues overnight with good po intake Objective - Vital Signs/Intake and Output Vital Signs (last 24 hours): Temp Pulse Resp BP Pulse Ox 99.7 F H 98 H 20 143/76 98 02/04/17 08:44 02/04/17 09:05 02/04/17 08:44 02/04/17 09:05 02/04/17 08:44 - Medications Medications: Current Medications Acetaminophen (Tylenol 325mg Tab) 650 mg PO Q6 PRN PRN Reason: Fever >100.4 F Last Admin: 02/03/17 19:49 Dose: 650 mg Amlodipine Besylate (Norvasc) 10 mg PO DAILY [facility] Last Admin: 02/04/17 09:05 Dose: 10 mg Aspirin (Ecotrin) 81 mg PO Q12@0900,2100 [facility] Last Admin: 02/04/17 09:03 Dose: 81 mg Carvedilol (Coreg) 6.25 mg PO Q12 [facility] Docusate Sodium (Colace) 100 mg PO BID [facility] Last Admin: 02/04/17 09:03 Dose: 100 mg Enalapril Maleate (Vasotec) 20 mg PO DAILY [facility] Gabapentin (Neurontin) 600 mg PO BID [facility] Last Admin: 02/04/17 09:04 Dose: 600 mg Glyburide (Micronase) 5 mg PO BRK [facility] Last Admin: 02/04/17 09:04 Dose: 5 mg Insulin Human Regular (Humulin R) 0 units SC ACHS [facility] PRN Reason: Protocol Last Admin: 02/04/17 06:53 Dose: 3 units Lactulose (Enulose) 20 gm PO DAILY PRN PRN Reason: Constipation Metformin HCl (Glucophage) 500 mg PO BID [facility] Last Admin: 02/04/17 09:04 Dose: 500 mg Multivitamins/Minerals (Therapeutic-M Tab) 1 tab PO DAILY [facility] Last Admin: 02/04/17 09:05 Dose: 1 tab Oxycodone/Acetaminophen (Percocet 5/325 Mg Tab) 2 tab PO Q4 PRN PRN Reason: Pain, moderate (4-7) Stop: 02/04/17 15:32 Last Admin: 02/03/17 08:51 Dose: 2 tab Pravastatin Sodium (Pravachol) 20 mg PO HS [facility] Last Admin: 02/03/17 21:20 Dose: 20 mg Sitagliptin Phosphate (Januvia) 100 mg PO DAILY [facility] Last Admin: 02/04/17 09:04 Dose: 100 mg - Labs Labs: 02/03/17 10:00 02/02/17 08:03 - Constitutional Appears: Non-toxic, No Acute Distress - Head Exam Head Exam: ATRAUMATIC, NORMAL INSPECTION, NORMOCEPHALIC - Eye Exam Eye Exam: EOMI, Normal appearance, PERRL Pupil Exam: NORMAL ACCOMODATION - ENT Exam ENT Exam: Mucous Membranes Moist, Normal Exam - Neck Exam Neck Exam: Full ROM, Normal Inspection - Respiratory Exam Respiratory Exam: Clear to Ausculation Bilateral, NORMAL BREATHING PATTERN. absent: Rales, Rhonchi, Wheezes - Cardiovascular Exam Cardiovascular Exam: REGULAR RHYTHM, RRR, +S1, +S2. absent: JVD - GI/Abdominal Exam GI & Abdominal Exam: Soft, Normal Bowel Sounds. absent: Distended, Guarding, Tenderness, Rebound - Rectal Exam Rectal Exam: Deferred - Extremities Exam Extremities Exam: Normal Capillary Refill, Normal Inspection. absent: Calf Tenderness, Pedal Edema Additional comments: right knee surgical incision with staplles in place healing well, warm to touch , slightly swollen - Back Exam Back Exam: NORMAL INSPECTION - Neurological Exam Neurological Exam: Alert, Awake, CN II-XII Intact, Oriented x3 - Psychiatric Exam Psychiatric exam: Normal Affect, Normal Mood - Skin Skin Exam: Dry, Warm Assessment and Plan - Assessment and Plan (Free Text) Assessment: 66 year old male with PMH of DM and HTN presented to [facility] for a right total knee replacement with Dr. De La Paz. The patient underwent the procedure without complications.The patient is admitted to TCU for further PT/OT and postoperative care. he is still having fever on and off with Tmax last 12 hours 99.7 , slightly dizzy upon standing and tachycardic. 1.s/p Right TKR Continue PT/OT and CPM machine use as per ortho recomemndations Dr. De La Paz following up Continue pain management Continue Colace Continue incentive spirometery ASA 81 mg pO BID for DVt prophylaxis 2. DM2 uncontrolled Continue home meds, Glyburide, Metformin and januvia Diabetic diet , accuchecks and insulin coverage 3. HTN uncontrolled Continue Norvasc Decresae Enalapril from 40 to 20 mg po daily since patient having orthostatic BP and is tachycardic. Start BB Coreg 6.25 mg po bid Use compression stockings 4. Anemia From operative blood loss stable 5. Postoperative fever- unclear etiology CXR showed no infiltrate. Continuer incentive spirometry use UA - clear Venous doppler showed no DVT Continue close monitoring Encourage Incentive Spirometer Continue Tylenol PRN monitor WBC 6. DVT prophylaxis Continue aspirin 81 mg po q 12 hours SCD 7. 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
[2017-02-04] MEDS: Pravastatin Sodium 20 MG TAB PO SCH (21:21)
[2017-02-05] MEDS: Lidocaine 5% Patch TD SCH ×2 (02:11→08:58)
[2017-02-05] MEDS: Insulin Regular 100 units/ml SC SCH ×4 (06:57→22:05)
[2017-02-05] MEDS: Multivitamin With Minerals Tab PO SCH (08:59)
[2017-02-05] MEDS: Oxycodone/Acetaminophen 5/325 mg Tab PO PRN (10:58)
--- NOTE | 2017-02-05 11:58 | CP.PCM.PN ---
Subjective - Date & Time of Evaluation Date of Evaluation: 02/05/17 Time of Evaluation: 11:57 - Subjective Subjective: seen examined for R TKR. no complaints continues to have orthostatic hypotension participating wtih PT well NAD Objective - Vital Signs/Intake and Output Vital Signs (last 24 hours): Temp Pulse Resp BP Pulse Ox 98.2 F 96 H 20 158/89 H 97 02/05/17 08:16 02/05/17 08:58 02/05/17 08:16 02/05/17 08:58 02/05/17 08:16 - Medications Medications: Current Medications Acetaminophen (Tylenol 325mg Tab) 650 mg PO Q6 PRN PRN Reason: Fever >100.4 F Last Admin: 02/04/17 16:25 Dose: 650 mg Amlodipine Besylate (Norvasc) 10 mg PO DAILY [facility] Last Admin: 02/05/17 08:59 Dose: Not Given Aspirin (Ecotrin) 81 mg PO Q12@0900,2100 [facility] Last Admin: 02/05/17 08:58 Dose: 81 mg Carvedilol (Coreg) 6.25 mg PO Q12 [facility] Last Admin: 02/05/17 08:58 Dose: 6.25 mg Docusate Sodium (Colace) 100 mg PO BID [facility] Last Admin: 02/05/17 08:57 Dose: 100 mg Enalapril Maleate (Vasotec) 20 mg PO DAILY [facility] Last Admin: 02/05/17 08:59 Dose: Not Given Gabapentin (Neurontin) 600 mg PO BID [facility] Last Admin: 02/05/17 08:58 Dose: 600 mg Glyburide (Micronase) 5 mg PO BRK [facility] Last Admin: 02/05/17 08:58 Dose: 5 mg Insulin Human Regular (Humulin R) 0 units SC ACHS [facility] PRN Reason: Protocol Last Admin: 02/05/17 06:57 Dose: 4 units Lactulose (Enulose) 20 gm PO DAILY PRN PRN Reason: Constipation Lidocaine (Lidoderm) 1 ea TD DAILY [facility] Last Admin: 02/05/17 08:58 Dose: 1 ea Metformin HCl (Glucophage) 500 mg PO BID [facility] Last Admin: 02/05/17 08:58 Dose: 500 mg Multivitamins/Minerals (Therapeutic-M Tab) 1 tab PO DAILY [facility] Last Admin: 02/05/17 08:59 Dose: 1 tab Oxycodone/Acetaminophen (Percocet 5/325 Mg Tab) 2 tab PO Q4 PRN PRN Reason: Pain, severe (8-10) Stop: 02/08/17 10:06 Last Admin: 02/05/17 10:58 Dose: 2 tab Pravastatin Sodium (Pravachol) 20 mg PO HS [facility] Last Admin: 02/04/17 21:21 Dose: 20 mg Sitagliptin Phosphate (Januvia) 100 mg PO DAILY [facility] Last Admin: 02/05/17 08:58 Dose: 100 mg - Labs Labs: 02/03/17 10:00 02/02/17 08:03 - Constitutional Appears: Non-toxic, No Acute Distress - Head Exam Head Exam: ATRAUMATIC, NORMOCEPHALIC - Eye Exam Eye Exam: EOMI, Normal appearance, PERRL Pupil Exam: NORMAL ACCOMODATION - ENT Exam ENT Exam: Mucous Membranes Moist, Normal Oropharynx - Respiratory Exam Respiratory Exam: Clear to Ausculation Bilateral, NORMAL BREATHING PATTERN - Cardiovascular Exam Cardiovascular Exam: RRR, +S1, +S2 - GI/Abdominal Exam GI & Abdominal Exam: Soft, Normal Bowel Sounds. absent: Tenderness, Organomegaly - Extremities Exam Extremities Exam: Normal Capillary Refill. absent: Calf Tenderness - Back Exam Back Exam: absent: CVA tenderness (L), CVA tenderness (R) - Neurological Exam Neurological Exam: Alert, Awake - Psychiatric Exam Psychiatric exam: Normal Affect, Normal Mood - Skin Skin Exam: Dry, Warm Assessment and Plan - Assessment and Plan (Free Text) Plan: 66 year old male with PMH of DM and HTN presented to [facility] for a right total knee replacement with Dr. De La Paz. The patient underwent the procedure without complications.The patient is admitted to TCU for further PT/OT and postoperative care. he is still having fever on and off with Tmax last 12 hours 99.7 , slightly dizzy upon standing and tachycardic. 1.s/p Right TKR Continue PT/OT and CPM machine use as per ortho recomemndations Dr. De La Paz following up Continue pain management Continue Colace Continue incentive spirometery ASA 81 mg pO BID for DVt prophylaxis 2. DM2 uncontrolled Continue home meds, Glyburide, Metformin and januvia Diabetic diet, accuchecks and insulin coverage 3. HTN uncontrolled Continue Norvasc Decresae Enalapril from 40 to 20 mg po daily since patient having orthostatic BP and is tachycardic. Start BB Coreg 6.25 mg po bid Use compression stockings For orthostatic hypotension, gave 500 cc in setting of hypetension as well 4. Anemia From operative blood loss stable 5. Postoperative fever- unclear etiology CXR showed no infiltrate. Continuer incentive spirometry use UA - clear Venous doppler showed no DVT Continue close monitoring Encourage Incentive Spirometer Continue Tylenol PRN monitor WBC 6. DVT prophylaxis Continue aspirin 81 mg po q 12 hours SCD 7. 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
[2017-02-05] MEDS ORDERED: Sodium Chloride 0.9% 500 ML IV SCH (13:30)
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
[2017-02-05] MEDS: Pravastatin Sodium 20 MG TAB PO SCH (21:58)
[2017-02-06] MEDS: Oxycodone/Acetaminophen 5/325 mg Tab PO PRN (05:13)
[2017-02-06] MEDS: Insulin Regular 100 units/ml SC SCH ×4 (07:41→22:44)
[2017-02-06] MEDS: Multivitamin With Minerals Tab PO SCH (08:58)
[2017-02-06] MEDS: Lidocaine 5% Patch TD SCH (08:59)
[2017-02-06] MEDS: Pravastatin Sodium 20 MG TAB PO SCH (22:26)
[2017-02-07] MEDS: Insulin Regular 100 units/ml SC SCH ×4 (07:58→21:35)
[2017-02-07] MEDS: Lidocaine 5% Patch TD SCH (08:37)
[2017-02-07] MEDS: Multivitamin With Minerals Tab PO SCH (08:37)
[2017-02-07] MEDS: Oxycodone/Acetaminophen 5/325 mg Tab PO PRN (09:05)
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
--- NOTE | 2017-02-07 14:15 | PN ---
DATE: PHYSIATRY PROGRESS NOTE SUBJECTIVE: A 66-year-old male, admitted to Transitional Care Unit for inpatient subacute rehab. The patient is doing well with some discomfort in the right hip and both lower extremities. PHYSICAL EXAMINATION: VITAL SIGNS: Vitals are stable. NECK: Supple. CHEST: Symmetrical. HEART: Sounds S1 and S2. ABDOMEN: Abdominal area is benign. EXTREMITIES: No clubbing, cyanosis. The patient with MARINA wraps on the leg. IMPRESSION: Impression for the patient, right total knee placement, gait difficulty, hypertension, diabetes. PLAN: For physical therapy, occupational therapy for range of motion strengthening, transfers, ambulation, gait training. Continue to monitor incisional area. Continue with discharge planning. Ankit Hurst MD
[2017-02-07] MEDS: Pravastatin Sodium 20 MG TAB PO SCH (21:35)
[2017-02-08] MEDS: Insulin Regular 100 units/ml SC SCH ×4 (06:59→22:09)
[2017-02-08] MEDS: Lidocaine 5% Patch TD SCH (09:13)
[2017-02-08] MEDS: Multivitamin With Minerals Tab PO SCH (09:16)
[2017-02-08] MEDS: Pravastatin Sodium 20 MG TAB PO SCH (22:08)
[2017-02-09] MEDS ORDERED: Oxycodone/Acetaminophen 5/325 mg Tab PO PRN (01:52)
[2017-02-09] MEDS: Oxycodone/Acetaminophen 5/325 mg Tab PO PRN (01:55)
[2017-02-09] MEDS: Insulin Regular 100 units/ml SC SCH ×4 (06:50→21:48)
[2017-02-09] MEDS: Lidocaine 5% Patch TD SCH (10:10)
[2017-02-09] MEDS: Multivitamin With Minerals Tab PO SCH (10:13)
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
[2017-02-09] MEDS: Pravastatin Sodium 20 MG TAB PO SCH (21:16)
[2017-02-10] MEDS: Insulin Regular 100 units/ml SC SCH ×4 (06:47→22:10)
[2017-02-10] MEDS: Lidocaine 5% Patch TD SCH (08:40)
[2017-02-10] MEDS: Multivitamin With Minerals Tab PO SCH (08:42)
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
[2017-02-10] MEDS: Pravastatin Sodium 20 MG TAB PO SCH (21:03)
[2017-02-10] MEDS: Oxycodone/Acetaminophen 5/325 mg Tab PO PRN (22:51)
[2017-02-11] MEDS: Insulin Regular 100 units/ml SC SCH ×2 (07:00→12:37)
[2017-02-11 08:24] VITALS: BP 147/91; PULSE 75; TEMP 98.4; O2SAT 99
[2017-02-11] MEDS: Multivitamin With Minerals Tab PO SCH (09:02)
[2017-02-11] MEDS: Lidocaine 5% Patch TD SCH (09:03)
[2017-02-11] MEDS ORDERED: Povidone Iodine Topical 10% Sol ONE (11:34)
--- NOTE | 2017-02-11 11:59 | CP.PCM.DIS ---
Provider - Provider Date of Admission: 02/01/17 14:31 Attending physician: Herberth Story DO Primary care physician: Ulises De La Paz III, MD Consults: ortho consult physiatry consult Time Spent in preparation of Discharge (in minutes): 15 Hospital Course - Lab Results Lab Results: Micro Results 02/02/17 16:45 Blood-Venous Blood Culture - Final NO GROWTH AFTER 5 DAYS 02/02/17 16:45 Blood-Venous Gram Stain - Final TEST NOT PERFORMED 02/02/17 17:02 Blood-Venous Blood Culture - Final NO GROWTH AFTER 5 DAYS 02/02/17 17:02 Blood-Venous Gram Stain - Final TEST NOT PERFORMED 02/02/17 17:35 Urine,Clean Catch Urine Culture - Final No Growth (<1,000 CFU/ML) Most Recent Lab Values WBC 9.2 K/uL (4.8-10.8) 02/03/17 10:00 RBC 3.34 Mil/uL (4.40-5.90) L 02/03/17 10:00 Hgb 10.1 g/dL (12.0-18.0) L 02/03/17 10:00 Hct 29.6 % (35.0-51.0) L 02/03/17 10:00 MCV 88.7 fl (80.0-94.0) 02/03/17 10:00 MCH 30.2 pg (27.0-31.0) 02/03/17 10:00 MCHC 34.1 g/dL (33.0-37.0) 02/03/17 10:00 RDW 13.0 % (11.5-14.5) 02/03/17 10:00 Plt Count 177 K/uL (130-400) 02/03/17 10:00 MPV 10.4 fl (7.2-11.7) 02/03/17 10:00 Neut % (Auto) 66.0 % (50.0-75.0) 02/03/17 10:00 Lymph % (Auto) 15.3 % (20.0-40.0) L 02/03/17 10:00 Stevens % (Auto) 16.1 % (0.0-10.0) H 02/03/17 10:00 Eos % (Auto) 2.3 % (0.0-4.0) 02/03/17 10:00 Baso % (Auto) 0.3 % (0.0-2.0) 02/03/17 10:00 Neut # 6.1 K/uL (1.8-7.0) 02/03/17 10:00 Lymph # 1.4 K/uL (1.0-4.3) 02/03/17 10:00 Stevens # 1.5 K/uL (0.0-0.8) H 02/03/17 10:00 Eos # 0.2 K/uL (0.0-0.7) 02/03/17 10:00 Baso # 0.0 K/uL (0.0-0.2) 02/03/17 10:00 Sodium 136 mmol/l (132-148) 02/02/17 08:03 Potassium 3.9 MMOL/L (3.6-5.0) 02/02/17 08:03 Chloride 100 mmol/L (98-107) 02/02/17 08:03 Carbon Dioxide 26 mmol/L (22-30) 02/02/17 08:03 Anion Gap 14 (10-20) 02/02/17 08:03 BUN 14 mg/dl (9-20) 02/02/17 08:03 Creatinine 1.0 mg/dl (0.8-1.5) 02/02/17 08:03 Est GFR ( Amer) > 60 02/02/17 08:03 Est GFR (Non-Af Amer) > 60 02/02/17 08:03 POC Glucose (mg/dL) 194 mg/dL (65-110) H 02/11/17 05:38 Random Glucose 197 mg/dL (75-110) H 02/02/17 08:03 Calcium 8.8 mg/dL (8.4-10.2) 02/02/17 08:03 Urine Color Yellow (YELLOW) 02/02/17 17:35 Urine Clarity Clear (Clear) 02/02/17 17:35 Urine pH 6.0 (5.0-8.0) 02/02/17 17:35 Ur Specific [place] 1.023 (1.003-1.030) 02/02/17 17:35 Urine Protein 30 mg/dL (NEGATIVE) 02/02/17 17:35 Urine Glucose (UA) >=500 mg/dL (Normal) 02/02/17 17:35 Urine Ketones Negative mg/dL (NEGATIVE) 02/02/17 17:35 Urine Blood Small (NEGATIVE) 02/02/17 17:35 Urine Nitrate Negative (NEGATIVE) 02/02/17 17:35 Urine Bilirubin Negative (NEGATIVE) 02/02/17 17:35 Urine Urobilinogen 2.0 mg/dL (0.2-1.0) 12 17:35 Ur Leukocyte Esterase Neg Kevin/uL (Negative) 02/02/17 17:35 Urine RBC (Auto) < 1 /hpf (0-3) 12 17:35 Urine Microscopic WBC 1 /hpf (0-5) 02/02/17 17:35 - Hospital Course Hospital Course: 66 year old male with PMH of DM and HTN presented to [facility] for a right total knee replacement with Dr. De La Paz. The patient underwent the procedure without complications.The patient was admitted to TCU for further PT/OT and postoperative care. Post op he developed fever with no source of infection. He participated well with PT and now to be discharged home. Lohn removed before discharge by case checker . Small skin breakdown noticed medial to surgical incision and recommended hydrogen peroxide and normal saline cleaning Twice daily on discharge 1.s/p Right TKR participated well with PT/OT and CPM machine use in TCU Dr. De La Paz followed and cleared patient for discharge. Follow up February 25 Continue pain management Continue Colace Continue incentive spirometery ASA 81 mg pO BID for DVt prophylaxis 2. DM2 uncontrolled Continue home meds upon discharge and follow up with PMd continue monitor accuchecks at home Diabetic diet, accuchecks and insulin coverage 3. HTN uncontrolled Continue Norvasc Decreased Enalapril from 40 to 20 mg po daily since patient was having orthostatic BP and is tachycardic. Started BB Coreg 6.25 mg po bid Use compression stockings 4. Anemia From operative blood loss stable 5. Postoperative fever- unclear etiology CXR showed no infiltrate. Continuer incentive spirometry use UA - clear Venous doppler showed no DVT Continue close monitoring Encourage Incentive Spirometer Continue Tylenol PRN monitor WBC 6. DVT prophylaxis Continue aspirin 81 mg po q 12 hours SCD 7. 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 absent: Rales, Rhonchi, Wheezes - Cardiovascular Exam Cardiovascular Exam: REGULAR RHYTHM, RRR, +S1, +S2. absent: JVD - GI/Abdominal Exam GI & Abdominal Exam: Normal Bowel Sounds, Soft. absent: Distended, Guarding, Rebound, Tenderness - Rectal Exam Rectal Exam: Deferred - Extremities Exam Extremities exam: normal inspection, pedal pulses present Additional comments: right knee surgical incision with steri strips in place - Back Exam Back exam: NORMAL INSPECTION - Neurological Exam Neurological exam: Alert, CN II-XII Intact, Oriented x3 - Psychiatric Exam Psychiatric exam: Normal Affect, Normal Mood - Skin Skin Exam: Dry, Normal Color, Warm Discharge Plan - Discharge Medications Prescriptions: amLODIPine [Norvasc] 10 mg PO DAILY #30 tab Aspirin [Ecotrin] 81 mg PO Q12H #60 tabec Carvedilol [Coreg] 6.25 mg PO Q12 #60 tab Docusate [Colace] 100 mg PO BID #60 cap Enalapril Maleate [Vasotec] 20 mg PO DAILY #30 tab Gabapentin [Neurontin] 600 mg PO BID #60 tab oxyCODONE/Acetaminophen [Percocet 5/325 mg Tab] 2 tab PO Q4 PRN #30 tab PRN Reason: for pain level 8-10 Pravastatin Sodium [Pravachol] 20 mg PO HS #30 tab SITagliptin [Januvia] 100 mg PO DAILY #30 tab - Follow Up Plan Condition: GOOD Disposition: HOME/ ROUTINE Patient education suggested?: Yes Instructions: Knee Replacement (DC) Referrals: Ulises De La Paz III, MD [Primary Care Provider] -
[2017-02-11] MEDS ORDERED: Hydrogen Peroxide 3% Soln (480ml) TP ONE (12:13)
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
== END 2017-02-11 14:10 | disposition home or self-care (01) | DRG 560 ==
LOC: H.TCU 02-01 14:31
PROVIDERS: ADMIT Internal Medicine; ATTEND Internal Medicine
PROC: F07M6FZ Therapeutic Exercise Treatment of Musculoskeletal System - Whole Body using Assistive, Adaptive, Supportive or Protective Equipment (ICD-10-PCS; principal; 2017-02-01)
PROC: F08Z4FZ Home Management Treatment using Assistive, Adaptive, Supportive or Protective Equipment (ICD-10-PCS; 2017-02-01)
PROC: F07Z9FZ Gait Training/Functional Ambulation Treatment using Assistive, Adaptive, Supportive or Protective Equipment (ICD-10-PCS; 2017-02-01)
DX: Z47.1 Aftercare following joint replacement surgery (principal); D62 Acute posthemorrhagic anemia; E11.41 Type 2 diabetes mellitus with diabetic mononeuropathy; Z96.651 Presence of right artificial knee joint; E11.65 Type 2 diabetes mellitus with hyperglycemia; E78.00 Pure hypercholesterolemia, unspecified; I10 Essential (primary) hypertension; I95.1 Orthostatic hypotension; M17.11 Unilateral primary osteoarthritis, right knee; R50.82 Postprocedural fever; Z79.82 Long term (current) use of aspirin; Z87.891 Personal history of nicotine dependence; Z90.49 Acquired absence of other specified parts of digestive tract; R00.0 Tachycardia, unspecified; R07.9 Chest pain, unspecified; R42 Dizziness and giddiness; S39.012D Strain of muscle, fascia and tendon of lower back, subsequent encounter; X58.XXXD Exposure to other specified factors, subsequent encounter; S33.5XXD Sprain of ligaments of lumbar spine, subsequent encounter; V89.2XXD Person injured in unspecified motor-vehicle accident, traffic, subsequent encounter; Y92.410 Unspecified street and highway as the place of occurrence of the external cause